=== PATIENT | female | born 1995 | race Two or more races ===

== ENCOUNTER 2023-12-20 10:21 | Outpatient (CLI) | payer OTHER | END 2023-12-20 10:24 | disposition home or self-care (01) | LOC: PRENATAL 10:21 | PROVIDERS: ATTEND Obstetrics & Gynecology Maternal & Fetal Medicine | DX: O36.80X0 Pregnancy with inconclusive fetal viability, not applicable or unspecified (principal); Z36.82 Encounter for antenatal screening for nuchal translucency; Z3A.12 12 weeks gestation of pregnancy ==

== ENCOUNTER → 2024-02-10 08:18 | Outpatient (CLI) | payer OTHER | END | disposition home or self-care (01) | LOC: PRENATAL 08:18 | PROVIDERS: ATTEND Obstetrics & Gynecology Maternal & Fetal Medicine | DX: O35.3XX0 Maternal care for (suspected) damage to fetus from viral disease in mother, not applicable or unspecified (principal); O44.00 Complete placenta previa NOS or without hemorrhage, unspecified trimester; Z3A.20 20 weeks gestation of pregnancy ==

== ENCOUNTER 2024-04-06 09:33 | Outpatient (CLI) | payer OTHER | END 2024-04-06 09:34 | disposition home or self-care (01) | LOC: PRENATAL 09:33 | PROVIDERS: ATTEND Obstetrics & Gynecology Maternal & Fetal Medicine | DX: O26.849 Uterine size-date discrepancy, unspecified trimester (principal); O44.00 Complete placenta previa NOS or without hemorrhage, unspecified trimester; Z3A.26 26 weeks gestation of pregnancy ==

== ENCOUNTER → 2024-05-01 15:18 | Outpatient (CLI) | payer OTHER | END | disposition home or self-care (01) | LOC: PRENATAL 15:18 | PROVIDERS: ATTEND Obstetrics & Gynecology Maternal & Fetal Medicine | DX: O26.849 Uterine size-date discrepancy, unspecified trimester (principal); O36.8199 Decreased fetal movements, unspecified trimester, other fetus; Z3A.30 30 weeks gestation of pregnancy ==

== ENCOUNTER 2024-05-22 09:01 | Outpatient (CLI) | payer OTHER | END 2024-05-22 09:03 | disposition home or self-care (01) | LOC: PRENATAL 09:01 | PROVIDERS: ATTEND Obstetrics & Gynecology Maternal & Fetal Medicine | DX: O26.849 Uterine size-date discrepancy, unspecified trimester (principal); O36.8199 Decreased fetal movements, unspecified trimester, other fetus; Z3A.33 33 weeks gestation of pregnancy ==